=== PATIENT | female | born 1960 | race African-American/Black ===

== ENCOUNTER 2017-12-31 04:55 | Emergency (ER) | payer MEDICAID, OTHER ==
[~2017-12-31] VITALS: Ht 157.5 cm; Wt 120.0 kg
[~2017-12-31 04:55] MED LIST: HYDR25TA; LISI10TA5
[2017-12-31 05:01] VITALS: BP 145/84
[2017-12-31] MEDS ORDERED: METOPROLOL TARTRATE 25MG TABLET PO ONE (05:30)
== END 2017-12-31 05:36 | disposition home or self-care (01) ==
LOC: ER 04:55
DX: I47.1 Supraventricular tachycardia (principal); E11.9 Type 2 diabetes mellitus without complications; I10 Essential (primary) hypertension
CPT/HCPCS: 93005; 99283

== ENCOUNTER 2020-09-28 07:36 | Emergency (ER) | payer MEDICAID ==
[~2020-09-28] VITALS: Ht 165.1 cm; Wt 109.0 kg
[2020-09-28] MEDS ORDERED: KETOROLAC 60MG/2ML VIAL IM ONE (07:45)
[2020-09-28] MEDS ORDERED: ACETAMINOPHEN WITH CODEINE 300/30MG TABLET PO ONE (07:45)
[2020-09-28 10:00] VITALS: BP 185/80
== END 2020-09-28 10:02 | disposition home or self-care (01) ==
LOC: ER 07:36
DX: M79.18 Myalgia, other site (principal); I10 Essential (primary) hypertension; E11.9 Type 2 diabetes mellitus without complications; J45.909 Unspecified asthma, uncomplicated; F41.9 Anxiety disorder, unspecified; F32.9 Major depressive disorder, single episode, unspecified; Z98.890 Other specified postprocedural states; V43.52XA Car driver injured in collision with other type car in traffic accident, initial encounter; Y93.89 Activity, other specified; Y92.488 Other paved roadways as the place of occurrence of the external cause
CPT/HCPCS: 70450; 72125; 73502; 73560; 96372; 99285; J1885